=== PATIENT | female | born 1955 | race Caucasian/White ===

== ENCOUNTER 2022-05-09 22:31 | Emergency (ER) | payer OTHER, SELFPAY ==
--- NOTE | 2022-05-09 22:36 | DI.RAD.S_ITS ---
PROCEDURE: XR CHEST 1V INDICATIONS: chest pain TECHNIQUE: One view of the chest was acquired. COMPARISON: None. FINDINGS: Surgical changes and devices: None. Lungs and pleura: Lungs are hyperinflated and hyperlucent. There is scarring laterally in the right mid lung. Asymmetric dense opacity is seen in the left hilar region. Mediastinum: Mildly enlarged heart. No central venous congestion. Atherosclerotic aortic contour. Bones and chest wall: No suspicious bone lesions. Deformities multiple left lateral rib fractures. Mild dextroscoliosis. IMPRESSION: 1. Hyperinflation suggesting asthma or emphysema. 2. Left hilar opacity of uncertain etiology. Correlate with history. 3. Mild cardiomegaly without central venous congestion. Dictated by: Maddy Dey M.D. on 05/10/2022 at 0:13 Approved by: Maddy Dey M.D. on 05/10/2022 at 0:15
[2022-05-09 22:39] VITALS: BP 120/80; PULSE 88; RESP 24; TEMP 37.1; O2SAT 95; BMI 16.7
--- NOTE | 2022-05-09 23:00 | ED.SOB ---
HPI - SOB/Dyspnea General Chief Complaint: Shortness of Breath/Dyspnea Stated Complaint: SOB Time Seen by Provider: 05/09/22 22:35 Source: patient and EMS Mode of arrival: EMS Limitations: no limitations History of Present Illness HPI Narrative: Patient brought in by EMS from assisted living home. Complains of shortness of breath no chest pain. Patient continues to smoke has history of COPD is on baseline nasal cannula 4 L at home. Continuous. Patient given DuoNeb treatment by EMS. At home setting it was 85%. Now 94%. Patient is still wheezing but feeling better. Denies any chest pain. History of atrial fibrillation but is not on any blood thinners. Patient has ongoing sputum productive cough. No fever chills. No leg swelling. Patient in no distress. Patient is allergic to steroid Review of Systems Review of Systems Narrative: GENERAL: Denies chills, fatigue, malaise, fever, sweats. HEENT: Denies sinus pain, ear pain, sore throat RESPIRATORY: Positive dyspnea, cough CARDIOVASCULAR: Denies chest pain, palpitations GASTROINTESTINAL: Denies nausea, vomiting, abdominal pain : Denies dysuria, frequency, hematuria MUSCULOSKELETAL: denies muscle or bony pain SKIN: Denies rash, skin lesions NEUROLOGIC: Denies weakness, numbness ROS Unobtainable: All systems reviewed & are unremarkable except as noted in HPI and below Patient History Social History Smoking Status: Current some day smoker Smoking Status: Current some day smoker tobacco type: cigarettes Substance Use Type: does not use Exam Narrative Exam Narrative: GENERAL: in no distress, not toxic not dyspneic HEAD: Normocephalic. EYES: Pupils equal round No scleral icterus. ENT: Mucous membranes moist. NECK: Trachea midline. CARDIOVASCULAR: Regular rate and rhythm without murmurs RESPIRATORY: Speaking full sentences, however slightly dyspneic. There is bibasilar wheezing and mild rhonchi. No rales. GASTROINTESTINAL: Abdomen soft, non-tender EXTREMITIES: No gross deformities. No ankle or pedal edema BACK: No flank tenderness. NEURO: AOx4. SKIN: Warm and dry PSYCH: Not anxious, is cooperative Initial Vital Signs Initial Vital Signs: Vital Signs Temperature 98.8 F 05/09/22 22:39 Pulse Rate 88 05/09/22 22:39 Respiratory Rate 24 05/09/22 22:39 Blood Pressure 120/80 05/09/22 22:39 Pulse Oximetry 95 05/09/22 22:39 Oxygen Delivery Method 05/09/22 22:39 Oxygen Flow Rate 4 05/09/22 22:39 Course Course Course Narrative: No new issues during course of stay Orders Ordered: ED Orders 05/09/22 22:36 XR chest 1V Stat 05/09/22 22:49 RT Consult Eval and Treat RT PROTOCOL 05/09/22 22:56 EKG-12 Lead Stat 05/09/22 23:56 Complete Blood Count AUTO DIFF Stat Comprehensive Metabolic Panel Stat NT-proBNP (BNP-Adult 18+) Stat Partial Thromboplastin Time Stat Prothrombin Time INR Stat Troponin & CK Cardiac Panel Stat Discontinued Medications Albuterol/Ipratropium (Albuterol/Ipratropium 3 Ml Ampul) 3 ml INH NOW ONE Stop: 05/09/22 23:12 Last Admin: 05/09/22 23:19 Dose: 3 ml Documented By: STEVO Reevaluation(s) Reevaluation #1: Patient states feeling much better after DuoNeb treatments, 1 by EMS in 1 from us. Patient is at 97% on 4 L nasal cannula. Blood pressure 120 over 80 with pulse of 90. Patient states she feels her normal baseline at this time. Time: 23:39 Reevaluation #2: Patient remains feeling at her baseline with 4 L nasal cannula. 97%. She desires discharge home. Feels much better after breathing treatments Time: 00:54 Reevaluation #3: Patient walking in hallway very briskly on her baseline 4 L nasal cannula oxygen and is doing 95%. Having no difficulties walking or dyspneic. Patient desires discharge home. She states she is at baseline at this time. Time: 01:23 Vital Signs Vital signs: Vital Signs - 8 hr 05/09/22 23:19 05/10/22 00:05 05/10/22 00:06 Pulse Rate 88 85 Respiratory Rate 24 Blood Pressure 112/75 Pulse Oximetry 95 96 Oxygen Delivery Method Nasal Cannula Oxygen Flow Rate 3.5 05/10/22 00:06 05/10/22 00:30 05/10/22 00:30 Pulse Rate 89 85 Respiratory Rate Blood Pressure 103/74 Pulse Oximetry 95 97 Oxygen Delivery Method Oxygen Flow Rate 05/10/22 01:01 05/10/22 01:03 05/10/22 01:03 Pulse Rate 89 88 Respiratory Rate Blood Pressure 130/73 Pulse Oximetry 94 94 Oxygen Delivery Method Oxygen Flow Rate 05/10/22 01:30 05/10/22 02:00 Pulse Rate 81 75 Respiratory Rate Blood Pressure Pulse Oximetry 97 98 Oxygen Delivery Method Oxygen Flow Rate MDM - SOB/Dyspnea Differential Diagnosis Differential diagnosis: Likely acute exacerbation of chronic obstructive airways disease, congestive heart failure, community acquired pneumonia and asthma with exacerbation Lab Data Result diagrams: 05/09/22 23:56 05/09/22 23:56 Labs: Lab Results 05/09/22 05/09/22 05/09/22 Range/Units 23:56 23:56 23:56 WBC 7.2 (4.5-11.0) X10^3/uL RBC 4.14 (4.0-5.2) X10^6/uL Hgb 12.2 (12.0-16.0) g/dL Hct 36.8 (36-46) % MCV 89.0 (80-100) fL MCH 29.4 (26-34) PG MCHC 33.0 (30-36) % RDW 13.9 (11.6-14.8) % Plt Count 316 (150-400) X10^3/uL Neut % (Auto) 65.5 (50-75) % Lymph % (Auto) 21.7 L (25-40) % [place] % (Auto) 8.0 (3-14) % Eos % (Auto) 1.8 L (2-4) % Baso % (Auto) 3.0 H (0-2) % Neut # (Auto) 4700 (6154-3890) /uL Lymph # (Auto) 1500 (0381-6245) /uL [place] # (Auto) 600 (0-900) /uL Eos # (Auto) 100 (0-450) /uL Baso # (Auto) 200 H (0-100) /uL PT 15.3 H (10.1-12.7) SECONDS INR 1.3 (0.9-1.3) APTT 72 H (26-36) SECONDS Sodium 137 (137-145) mmol/L Potassium 3.7 (3.4-5.1) mmol/L Chloride 92 L (98-107) mmol/L Carbon Dioxide 40 H* (22-32) mmol/L BUN 20 H (7-17) mg/dL Creatinine 0.57 (0.52-1.04) mg/dL Estimated GFR > 60 (>60) mL/min BUN/Creatinine Ratio 35.1 H (6-22) Glucose 105 (80-110) mg/dL Calcium 8.8 (8.4-10.2) mg/dL Total Bilirubin 0.6 (0.2-1.3) mg/dL AST 18 (14-36) IU/L ALT 8 (<35) IU/L Alkaline Phosphatase 101 (38-126) U/L Total Creatine Kinase 35 (30-135) U/L CK-MB (CK-2) TNP CK-MB (CK-2) Rel Index TNP Troponin I < 0.012 (0.01-0.034) ng/mL NT-Pro-B Natriuret Pep 1760 H (<125) pg/mL Total Protein 7.0 (6.3-8.2) g/dL Albumin 3.7 (3.5-5.0) g/dL Globulin 3.3 (1.7-4.1) g/dL Albumin/Globulin Ratio 1.1 (1.0-2.8) Imaging Data Chest x-ray: Radiologist's Impression: [place] [address] XRay Report Signed Patient: Katherin Herron MR#: [id number] : 1955 Acct:[id number] Age/Sex: 67 / F Date of Service: 05/09/22 Loc: ED Accession Number: [id number] ?? Procedure: XR chest 1V Ordering Provider: Alejandro Ash MD PROCEDURE:? XR CHEST 1V ? INDICATIONS:? chest pain ? TECHNIQUE:? One view of the chest was acquired.? ? COMPARISON:? None. ? FINDINGS:? ? Surgical changes and devices:? None.? ? Lungs and pleura:? Lungs are hyperinflated and hyperlucent.? There is scarring laterally in the right mid lung.? Asymmetric dense opacity is seen in the left hilar region. ? Mediastinum:? Mildly enlarged heart.? No central venous congestion.? Atherosclerotic aortic contour. ? Bones and chest wall:? No suspicious bone lesions.? Deformities multiple left lateral rib fractures.? Mild dextroscoliosis. ? IMPRESSION:? ? 1. Hyperinflation suggesting asthma or emphysema. ? 2. Left hilar opacity of uncertain etiology.? Correlate with history. ? 3. Mild cardiomegaly without central venous congestion.? ? ? Dictated by: Maddy Dey M.D. on 05/10/2022 at 0:13 ? ? Approved by: Maddy Dey M.D. on 05/10/2022 at 0:15 ? ECG Data Interpretation: Atrial fibrillation rate [address] elevation MDM Narrative Medical decision making narrative: Appropriate for discharge home. Patient at baseline with oxygenation saturation. 4 L nasal cannula. Instructed patient to stop smoking. Patient does have breathing treatments at home. Return precautions reviewed with her. Exam and laboratory studies and imaging are reassuring. Patient thinks the weather may have been a factor trigger her COPD. It has been hot weather Discharge Plan Departure Patient Disposition: Home Clinical Impression: Acute exacerbation of chronic obstructive airways disease Activity Restrictions/Additional Instructions: Do not smoke. Please continue home medications and your home breathing treatments. See family doctor within a week for re-evaluation. Please do continue your home oxygen needs. Return if worse if any questions or concerns. Visit Report Forms: Patient Portal/API
[2022-05-09 23:19] VITALS: PULSE 88; RESP 24; O2SAT 95
[2022-05-09] MEDS: ALBUTEROL/IPRATROPIUM 3 ML AMPUL INH (23:19)
[2022-05-10] VITALS (7 sets, daily range): BP systolic 103–130; BP diastolic 73–75; PULSE 75–89; O2SAT 94–98
[2022-05-10 00:18] LABS: Add Manual Diff / Slide Review NO; Basophils Absolute Auto 200 /uL (0-100); Eosinophils Absolute Auto 100 /uL (0-450); Eosinophils Percent Auto 1.8 % (2-4); Hematocrit 36.8 % (36-46); Hemoglobin 12.2 g/dL (12.0-16.0); Lymphocytes Absolute Auto 1500 /uL (1100-4500); Lymphocytes Percent Auto 21.7 % (25-40); Mean Corpuscular Hemoglobin 29.4 PG (26-34); Monocytes Absolute Auto 600 /uL (0-900); Neutrophils Absolute Auto 4700 /uL (1500-7000); Neutrophils Percent Auto 65.5 % (50-75); Platelet Count 316 X10^3/uL (150-400); Red Blood Cell Count 4.14 X10^6/uL (4.0-5.2); Red Cell Distribution Width 13.9 % (11.6-14.8); White Blood Cell Count 7.2 X10^3/uL (4.5-11.0)
[2022-05-10 00:19] LABS: INR 1.3 (0.9-1.3); Prothrombin Time 15.3 SECONDS (10.1-12.7)
[2022-05-10 00:22] LABS: PTT Partial Thromboplastin Tim 72 SECONDS (26-36)
[2022-05-10 00:23] LABS: Alanine Aminotransferase 8 IU/L (<35); Albumin 3.7 g/dL (3.5-5.0); Albumin Globulin Ratio 1.1 (1.0-2.8); Alkaline Phosphatase 101 U/L (38-126); Aspartate Aminotransferase 18 IU/L (14-36); BUN Creatinine Ratio 35.1 (6-22); Bilirubin Total 0.6 mg/dL (0.2-1.3); Blood Urea Nitrogen 20 mg/dL (7-17); Calcium 8.8 mg/dL (8.4-10.2); Chloride 92 mmol/L (98-107); Creatine Kinase 35 U/L (30-135); Estimated Glomerular Filt Rate > 60 mL/min (>60); Globulin 3.3 g/dL (1.7-4.1); Glucose 105 mg/dL (80-110); HEMOLYSIS < 15 (0-50); Potassium 3.7 mmol/L (3.4-5.1); Sodium 137 mmol/L (137-145)
[2022-05-10 00:35] LABS: NT-proBNP (BNP-Adult 18+) 1760 pg/mL (<125); Troponin I < 0.012 ng/mL (0.01-0.034)
[2022-05-10 00:37] LABS: Carbon Dioxide 40 mmol/L (22-32)
== END 2022-05-10 02:12 | disposition home or self-care (01) ==
PROVIDERS: Emergency Provider Emergency Medicine
DX: J44.1 Chronic obstructive pulmonary disease with (acute) exacerbation (principal); R07.9 Chest pain, unspecified
CPT/HCPCS: 36415; 71045; 80053; 82550; 83880; 84484; 85025; 85610; 85730; 93005; 94640; 99284

== ENCOUNTER 2022-08-30 01:27 | Observation (INO) | payer OTHER, SELFPAY ==
[2022-08-30] VITALS (15 sets, daily range): BP systolic 89–121; BP diastolic 65–78; PULSE 69–120; RESP 20–40; TEMP 36.2–37.3; O2SAT 67–100; BMI 15.6
--- NOTE | 2022-08-30 01:24 | ED_ITS ---
HPI - Fall General Chief Complaint: Trauma Stated Complaint: Fall, hit head, on thinners Time Seen by Provider: 08/30/22 01:35 Source: EMS and old records reviewed Mode of arrival: EMS Limitations: other (difficulty speaking/shortness of breath) History of Present Illness HPI Narrative: This is a 67 year old female sent by EMS from independent living. Patient has a history of COPD and states that she has a history of CABG atrial fibrillation, patient has difficulty giving history secondary to shortness of breath. She states that she went to the bathroom she felt ill and on her way back had a fall to the ground and was found around midnight. EMS found her 85% room air, she received Solu-Medrol and DuoNeb in route and was in quite a bit of respiratory distress they states some improvement. Patient reportedly is on a blood thinner but no access to list of medications for the patient and patient is unable to tell me her home medications. She indicates that she is feeling better but still is having difficulty breathing he is denying pain currently besides telling EMS that she had shoulder and toe pain. Per EMS and patient states that they have recently been in touch with hospice she has not actually initiated hospice but a seeking placement. Patient indicates she does not want intubation or CPR but indicates she is okay with IV medications. Related Data Allergies Allergy/AdvReac Type Severity Reaction Status Date / Time No Known Drug Allergies Allergy Verified 08/30/22 02:13 Review of Systems Review of Systems ROS Unobtainable: All systems reviewed & are unremarkable except as noted in HPI and below Patient History Social History Smoking Status: Current some day smoker Exam Narrative Exam Narrative: GEN: Elderly cachectic female, alert and oriented, patient appears to be in [id number] distress. Patient able to answer some questions but has difficulty secondary to her trouble breathing. HEENT: Atraumatic, pupils are equal round reactive to light, extraocular movements are intact, nares are clear, TMs are clear with no fluid, there is no conjunctival pallor. Throat is clear without any exudates, erythema, tonsillar enlargement or uvular deviation HEART: Regular rate and rhythm without murmur, clicks, rubs. No carotid bruits, pulses are equal in upper and lower extremities LUNGS:Lungs are coarse bilaterally, bilateral wheezes, rales, crackles, chest moves symmetrically, positive for tachypnea pursed lip breathing. ABD:bowel sounds normal, soft, non-tender, no guarding, rebound, rigidity, no masses noted, no hepatosplenomegaly :No CVA tenderness BACK: No cervical, thoracic or lumbar vertebral point tenderness. MSCL: Non-tender, no muscle atrophy, muscles strength 5/5 upper and lower extremities, full range of motion, normal gait NEURO:CN 2-12 intact, sensation normal Initial Vital Signs Initial Vital Signs: Vital Signs Temperature 99.2 F 08/30/22 01:30 Pulse Rate 81 08/30/22 01:30 Respiratory Rate 40 H 08/30/22 01:30 Blood Pressure 121/75 08/30/22 01:30 Pulse Oximetry 92 08/30/22 01:30 Oxygen Delivery Method 08/30/22 01:30 Oxygen Flow Rate 4 08/30/22 01:30 Scores GCS [place] coma scale eye opening: Spontaneous [place] coma scale verbal response: Orientated [place] coma scale motor response: Obey commands [place] coma scale total score: 15 Nexus Score for C-Spine Focal Neurologic deficit present: No Course Orders Ordered: ED Orders 08/30/22 01:25 CT cervical spine wo con Stat CT head/brain wo con Stat Chest [XR chest 1V] Stat EKG-12 Lead Stat 08/30/22 01:34 XR pelvis 1-2V Stat 08/30/22 01:55 Covid-19 + FLU A/B + RSV - PCR Stat 08/30/22 02:00 Complete Blood Count AUTO DIFF Stat Comprehensive Metabolic Panel Stat Lipase Stat NT-proBNP (BNP-Adult 18+) Stat Partial Thromboplastin Time Stat Prothrombin Time INR Stat Troponin & CK Cardiac Panel Stat 08/30/22 02:04 ABG [Arterial Blood Gas] Stat 08/30/22 04:08 CT chest w con Stat Discontinued Medications Albuterol (Albuterol 2.5 Mg/3 Ml Neb (Adult)) 2.5 mg INH NOW ONE Stop: 08/30/22 02:08 Last Admin: 08/30/22 02:25 Dose: 2.5 mg Documented By: KIRSTIN Furosemide (Furosemide 40 Mg/4 Ml Vial) 40 mg IV NOW ONE Stop: 08/30/22 04:08 Last Admin: 08/30/22 06:41 Dose: Not Given Documented By: CAROLINA Piperacillin Sod/Tazobactam (Sod 4.5 gm/ Sodium Chloride) 100 mls @ 200 mls/hr IV NOW ONE Stop: 08/30/22 02:05 Last Infusion: 08/30/22 03:00 Dose: 0 mls/hr Documented By: Admin: 08/30/22 02:25 Dose: 200 mls/hr Documented By: KIRSTIN Consultations Consultation #1: Gomez, . Patient friend and has been attending all patients clinic visits and has been signed off. She states they met with hospice this week patient has been telling her that she does not want to be full code, she does not want intervention. She is currently in independent living but is falling frequently and needs more assistance than this. They are supposed to meet with her primary care physician this upcoming week to go through paperwork to make things official. Consultation #2: Dr. Demarco, patient's primary care physician he is familiar with the patient st ates she is been quite sick with severe lung disease O2 dependent, discussed that she does have a new lung mass on her imaging that was not present chest x- ray in April, discussed that there was a pulsed form from 2019 but patient is expressing that she does not want intervention and wants to be comfortable go home and , her patient's friend Gomez who he is familiar with and does no is also expressing that this is what the patient wants and Dr. Demarco states patient has also expressed him as well that this is her goals of care. Discussed that we will respect patient's current wishes. Time: 06:41 Consultation #3: Dr. Yañez, hospitalist. Accepts for inpatient placement. Discussed that friends are happy to assist but unable to do maritime officer caregiving, sons not currently in the picture patient has had hospice initial eval but does not have full-time caregiving available at home and felt appropriate for inpatient admission as she is unsafe to be discharged home independently. Vital Signs Vital signs: Vital Signs - 8 hr 08/30/22 01:58 08/30/22 01:30 08/30/22 03:04 Temperature 99.2 F Pulse Rate 82 81 Respiratory Rate 40 H 40 H Blood Pressure 118/76 121/75 Pulse Oximetry 96 92 Oxygen Delivery Method Nasal Cannula Nasal Cannula Oxygen Flow Rate 4 4 Fraction of Inspired Oxygen 50 08/30/22 01:51 08/30/22 02:00 08/30/22 02:30 Temperature Pulse Rate 72 75 69 Respiratory Rate 36 H 36 H Blood Pressure Pulse Oximetry 86 L 90 L 100 Oxygen Delivery Method Oxygen Flow Rate Fraction of Inspired Oxygen 08/30/22 03:00 08/30/22 03:30 08/30/22 04:00 Temperature Pulse Rate 69 75 72 Respiratory Rate 30 H 25 H 28 H Blood Pressure Pulse Oximetry 91 90 L 91 Oxygen Delivery Method Oxygen Flow Rate Fraction of Inspired Oxygen 08/30/22 04:11 08/30/22 04:11 08/30/22 04:30 Temperature Pulse Rate 77 Respiratory Rate 27 H Blood Pressure 89/65 L 90/65 Pulse Oximetry 91 Oxygen Delivery Method Oxygen Flow Rate Fraction of Inspired Oxygen 08/30/22 04:30 08/30/22 05:20 Temperature Pulse Rate 73 Respiratory Rate 25 H Blood Pressure 111/78 Pulse Oximetry 92 Oxygen Delivery Method Oxygen Flow Rate Fraction of Inspired Oxygen 45 - Fall Lab Data Result diagrams: 08/30/22 02:00 08/30/22 02:00 Labs: Lab Results 08/30/22 08/30/22 08/30/22 Range/Units 01:55 02:00 02:00 WBC 9.2 (4.5-11.0) X10^3/uL RBC 3.71 L (4.0-5.2) X10^6/uL Hgb 10.1 L (12.0-16.0) g/dL Hct 32.8 L (36-46) % MCV 88.3 (80-100) fL MCH 27.3 (26-34) PG MCHC 30.9 (30-36) % RDW 15.1 H (11.6-14.8) % Plt Count 527 H (150-400) X10^3/uL Neut % (Auto) 75.7 H (50-75) % Lymph % (Auto) 14.2 L (25-40) % [place] % (Auto) 9.1 (3-14) % Eos % (Auto) 0.5 L (2-4) % Baso % (Auto) 0.5 (0-2) % Neut # (Auto) 6900 (7393-0569) /uL Lymph # (Auto) 1300 (3090-1535) /uL [place] # (Auto) 800 (0-900) /uL Eos # (Auto) 0 (0-450) /uL Baso # (Auto) 0 (0-100) /uL PT 14.6 H (10.1-12.7) SECONDS INR 1.3 (0.9-1.3) APTT 58 H (26-36) SECONDS Sodium (137-145) mmol/L Potassium (3.4-5.1) mmol/L Chloride (98-107) mmol/L Carbon Dioxide (22-32) mmol/L BUN (7-17) mg/dL Creatinine (0.52-1.04) mg/dL Estimated GFR (>60) mL/min BUN/Creatinine Ratio (6-22) Glucose (80-110) mg/dL Calcium (8.4-10.2) mg/dL Total Bilirubin (0.2-1.3) mg/dL AST (14-36) IU/L ALT (<35) IU/L Alkaline Phosphatase (38-126) U/L Total Creatine Kinase (30-135) U/L CK-MB (CK-2) CK-MB (CK-2) Rel Index Troponin I (0.01-0.034) ng/mL NT-Pro-B Natriuret Pep (<125) pg/mL Total Protein (6.3-8.2) g/dL Albumin (3.5-5.0) g/dL Globulin (1.7-4.1) g/dL Albumin/Globulin Ratio (1.0-2.8) Lipase (23-300) U/L SARS-CoV-2 (PCR) Negative (Negative) Influenza A (RT-PCR) Flu a negative (NEGATIVE) Influenza B (RT-PCR) Flu b negative (NEGATIVE) RSV (PCR) Negative (Negative) 08/30/22 08/30/22 Range/Units 02:00 02:00 WBC (4.5-11.0) X10^3/uL RBC (4.0-5.2) X10^6/uL Hgb (12.0-16.0) g/dL Hct (36-46) % MCV (80-100) fL MCH (26-34) PG MCHC (30-36) % RDW (11.6-14.8) % Plt Count (150-400) X10^3/uL Neut % (Auto) (50-75) % Lymph % (Auto) (25-40) % [place] % (Auto) (3-14) % Eos % (Auto) (2-4) % Baso % (Auto) (0-2) % Neut # (Auto) (2470-2592) /uL Lymph # (Auto) (1054-8792) /uL [place] # (Auto) (0-900) /uL Eos # (Auto) (0-450) /uL Baso # (Auto) (0-100) /uL PT (10.1-12.7) SECONDS INR (0.9-1.3) APTT (26-36) SECONDS Sodium 132 L (137-145) mmol/L Potassium 4.8 (3.4-5.1) mmol/L Chloride 82 L (98-107) mmol/L Carbon Dioxide 41 H* (22-32) mmol/L BUN 19 H (7-17) mg/dL Creatinine 0.56 (0.52-1.04) mg/dL Estimated GFR > 60 (>60) mL/min BUN/Creatinine Ratio 33.9 H (6-22) Glucose 110 (80-110) mg/dL Calcium 9.1 (8.4-10.2) mg/dL Total Bilirubin 0.3 (0.2-1.3) mg/dL AST 18 (14-36) IU/L ALT 12 (<35) IU/L Alkaline Phosphatase 112 (38-126) U/L Total Creatine Kinase 24 L (30-135) U/L CK-MB (CK-2) TNP CK-MB (CK-2) Rel Index TNP Troponin I < 0.012 (0.01-0.034) ng/mL NT-Pro-B Natriuret Pep 8510 H (<125) pg/mL Total Protein 7.1 (6.3-8.2) g/dL Albumin 3.5 (3.5-5.0) g/dL Globulin 3.6 (1.7-4.1) g/dL Albumin/Globulin Ratio 1.0 (1.0-2.8) Lipase 24 (23-300) U/L SARS-CoV-2 (PCR) (Negative) Influenza A (RT-PCR) (NEGATIVE) Influenza B (RT-PCR) (NEGATIVE) RSV (PCR) (Negative) Imaging Data Chest x-ray: Radiologist's Impression: Amanda Herron??67??F??1955 ? Allergy/Adv: No Known Drug Allergies Close Chest CT 08/30/22 Pelvis X-Ray (Signed) Garcia,Henok - 08/30/[address] (Signed) Garcia,Henok - 08/30/22 Chest X-Ray (Signed) Garcia,Henok - 08/30/[address] (Signed) Garcia,Henok - 08/30/22 Chest X-Ray (Signed) Maddy Dey - 05/09/22 Launch?Image [address] [address] XRay Report Signed Patient: Katherin Herron MR#: [id number] : 1955 Acct:[id number] Age/Sex: 67 / F Date of Service: 08/30/22 Loc: ED Accession Number: [id number] ?? Procedure: XR chest 1V Ordering Provider: Vibha Gonzalez D.O. PROCEDURE:? XR CHEST 1V ? INDICATIONS:? sob, fall, head injury ? TECHNIQUE:? One view of the chest was acquired.? ? COMPARISON:? [facility], CT, CT CERVICAL SPINE WO CON, 08/30/2022, 1:34.? [facility], CR, XR CHEST 1V, 05/09/2022, 23:14. ? FINDINGS:? ? Surgical changes and devices:? None.? ? Lungs and pleura:? There is hyperinflation of the lungs with flattening of the hemidiaphragms compatible with COPD.? There is increase in size of a left hilar mass which is partially visualized on the concurrent cervical spine CT.? Increased right infrahilar opacities are also demonstrated.? There is bilateral pulmonary edema.? No pleural effusions or pneumothorax.? ? Mediastinum:? Heart size is enlarged.? ? Bones and chest wall:? No displaced fracture identified on the current study.? No suspicious bony lesions.? Overlying soft tissues appear unremarkable.? ? IMPRESSION:? ? 1. Increase in size of a left hilar mass highly suspicious for a neoplasm such as bronchogenic carcinoma.? Recommend dedicated chest CT when clinically feasible. ? 2. Bilateral pulmonary edema appears new compared to the prior study. ? 3. Increased right infrahilar opacities compatible with consolidation/pneumonia versus atelectasis.? ? Dictated by: Henok Garcia M.D. on 08/30/2022 at 2:21 ? ? Approved by: Henok Garcia M.D. on 08/30/2022 at 2:24?? CT scan - head: Radiologist's Impression: [address] [address] [address] Scan Report Signed Patient: Katherin Herron MR#: [id number] : 1955 Acct:[id number] Age/Sex: 67 / F Date of Service: 08/30/22 Loc: ED Accession Number: [id number] ?? Procedure: CT head/brain wo con Ordering Provider: Vibha Gonzalez D.O. PROCEDURE:? CT HEAD/BRAIN WO CON ? INDICATIONS:? sob, fall, head injury ? TECHNIQUE:? Noncontrast 4.5 mm thick angled axial sections acquired from the foramen magnum to the vertex, with coronal and sagittal reformats.? For radiation dose reduction, the following was used:? automated exposure control, adjustment of mA and/or kV according to patient size.? ? COMPARISON:? None. ? FINDINGS:? Image quality:? There is mild motion artifact limiting evaluation.? ? CSF spaces:? Basal cisterns are patent.? No extra-axial fluid collections.? Ventricles are normal in size and shape.? ? Brain:? No definite intracranial hemorrhage, mass, or mass effect.? Mann-white matter interface appears grossly preserved.? ? Skull and face:? Calvarium and visualized facial bones are intact, without suspicious lesions.? ? Sinuses:? Visualized sinuses and mastoids are clear.? ? IMPRESSION:? ? 1. No definite acute intracranial abnormality, with evaluation limited by motion artifact. ? ? Dictated by: Henok Garcia M.D. on 08/30/2022 at 2:13 ? ? Approved by: Henok Garcia M.D. on 08/30/2022 at 2:16?? CT - cervical spine: Radiologist's Impression: [address] [address] [address] Scan Report Signed Patient: Katherin Herron MR#: [id number] : 1955 Acct:[id number] Age/Sex: 67 / F Date of Service: 08/30/22 Loc: ED Accession Number: [id number] ?? Procedure: CT cervical spine wo con Ordering Provider: Vibha Gonzalez D.O. PROCEDURE:? CT CERVICAL SPINE WO CON ? INDICATIONS:? sob, fall, head injury ? TECHNIQUE:? Noncontrast 3 mm thick sections acquired from the skull base to the T4 level.? Sagittal and coronal reformats were then constructed.? For radiation dose reduction, the following was used:? automated exposure control, adjustment of mA and/or kV according to patient size.? ? COMPARISON:? None. ? FINDINGS:? Image quality:? There is motion artifact limiting evaluation.? ? Bones:? No fractures or subluxation.? There is accentuation of the cervical lordosis.? Minimal retrolisthesis demonstrated at C2-C3 and C3-C4.? There is multilevel degenerative disc disease and facet joint arthropathy throughout the cervical spine.? Visualized superior ribs are intact.? ? Soft tissues:? Prevertebral soft tissues are normal in thickness.? No paravertebral hematomas.? No apical pneumothoraces.? The visualized lungs demonstrate a large area of masslike consolidation within the superior segment of the left lower lobe which is incompletely included on the current study but measures at least 6.4 cm.? There is also an irregular nodule within the right upper lobe measuring up to 0.9 cm.? ? ? IMPRESSION:? ? 1. No fracture or subluxation. ? 2. Partially visualized masslike consolidation within the left lung as well as a smaller nodule in the right upper lobe.? Recommend dedicated chest CT for further eval uation when clinically feasible. ? ? Dictated by: Henok Garcia M.D. on 08/30/2022 at 2:16 ? ? Approved by: Henok Garcia M.D. on 08/30/2022 at 2:20?? pelvic xray: Radiologist's Impression: [address] [address] XRay Report Signed Patient: Katherin Herron MR#: [id number] : 1955 Acct:[id number] Age/Sex: 67 / F Date of Service: 08/30/22 Loc: ED Accession Number: [id number] ?? Procedure: XR pelvis 1-2V Ordering Provider: Vibha Gonzalez D.O. PROCEDURE:? XR PELVIS 1-2V ? INDICATIONS:? fall, hit head, thinners. ? TECHNIQUE:? Single-view of the pelvis acquired.? ? COMPARISON:? None. ? FINDINGS:? ? Bones:? No fractures or dislocations.? No suspicious bony lesions.? ? Soft tissues:? Visualized bowel gas pattern is normal.? There are scattered vascular calcifications. ? IMPRESSION:? ? 1. No definite fracture or dislocation. ? ? Dictated by: Henok Garcia M.D. on 08/30/2022 at 2:20 ? ? Approved by: Henok Garcia M.D. on 08/30/2022 at 2:21?? CT scan - chest: Radiologist's Impression: Large left lower lobe necrotic appearing mass, highly suspicious for malignancy with numerous necrotic mediastinal and hilar lymph nodes likely metastatic disease largest is 3.8 cm, small bilateral effusions left greater than right pleural. Lobe masses 4.7 x 6.3 cm with patchy consolidation within bilateral lower lobes. Cachexia. Indeterminate right adrenal nodule. Nodular parents of right thyroid gland. Hepatic lesions in right and left 1.5 and 1.1 cm. ECG Data Attestation: I personally reviewed and interpreted this ECG as follows: Prior ECG tracings: available for review Interpretation: AFib, rate 81 QRS 82 QTC 381. Patient has T-wave inversions in lateral leads, she appears to be in AFib with no P waves with QRS, patient has prior EKG from 05/09/2022 which appears similar to today's with no acute dynamic changes appreciated. MDM Narrative Medical decision making narrative: This is a 67-year-old female with known COPD and prior CABG who had a ground level fall and in respiratory distress. Patient may clear she is DNR/DNI but states that she is open to BiPAP and labs and imaging. Head CT, C-spine were obtained as patient had ground level fall, chest x-ray and pelvic x-ray, labs including ABG which shows acute hypercapnic respiratory failure with a pH of 7.29 with a CO2 of 94 PO2 of 70 on 6 L nasal cannula and a bicarb of 46 appears to have a secondary metabolic alkalosis. Patient does not have significant renal failure, troponin is negative, BNP is 8500 likely component of CHF as well, chest x-ray shows appears to be pneumonia and also possible mass and CT chest was obtained this does show a large left lower lobe necrotic mass highly suspicious for malignancy with multiple necrotic mediastinal and hilar lymph nodes she has bibasilar consolidations and small bilateral pleural effusions likely worsening her oxygenation. Patient was open to BiPAP initially but does not wish to have an on board anymore. She did become a bit more responsive, she has since removed it she is express throughout her entire stay her goal of DNR/DNI and essentially comfort measures. I spoke with her friend Gomez who has been helping her with her medical care who states they met with hospice in the last week patient was interested in starting this. I spoke with Dr. Demarco who is her primary care who states that patient's wishes recently also are consistent DNR/DNI and comfort measures would be appropriate. Patient had old POLST form that states full code but Dr. Demarco, PCP, patient herself and friend Gomez are all consistent regarding patient wishes. Patient does have a son but all contact numbers have failed for us and patient's friend is seeking to see if they have a contact number but have not heard from him in several years. Spoke with Dr. Yañez hospitalist who accepts for admission. Critical Care Time Critical Care Time Attestation: The high probability of a clinically significant, sudden or life threatening deterioration of the [cardiac, pulm] system(s) required my full and direct attention, intervention and personal management. The aggregate critical care time was [] minutes. This time is in addition to time spent performing reported procedures but includes the following: [x] Data Review and interpretation [x] Patient assessment and monitoring of vital signs [x] Documentation [x] Medication orders and management Discharge Plan Departure Patient Disposition: Admitted As Inpatient Clinical Impression: Acute hypercapnic respiratory failure, Fall, Head injury Admit Date/Time: 08/30/22 07:20
--- NOTE | 2022-08-30 01:25 | DI.CT.S_ITS ---
PROCEDURE: CT HEAD/BRAIN WO CON INDICATIONS: sob, fall, head injury TECHNIQUE: Noncontrast 4.5 mm thick angled axial sections acquired from the foramen magnum to the vertex, with coronal and sagittal reformats. For radiation dose reduction, the following was used: automated exposure control, adjustment of mA and/or kV according to patient size. COMPARISON: None. FINDINGS: Image quality: There is mild motion artifact limiting evaluation. CSF spaces: Basal cisterns are patent. No extra-axial fluid collections. Ventricles are normal in size and shape. Brain: No definite intracranial hemorrhage, mass, or mass effect. Mann-white matter interface appears grossly preserved. Skull and face: Calvarium and visualized facial bones are intact, without suspicious lesions. Sinuses: Visualized sinuses and mastoids are clear. IMPRESSION: 1. No definite acute intracranial abnormality, with evaluation limited by motion artifact. Dictated by: Henok Garcia M.D. on 08/30/2022 at 2:13 Approved by: Henok Garcia M.D. on 08/30/2022 at 2:16
--- NOTE | 2022-08-30 01:25 | DI.CT.S_ITS ---
PROCEDURE: CT CERVICAL SPINE WO CON INDICATIONS: sob, fall, head injury TECHNIQUE: Noncontrast 3 mm thick sections acquired from the skull base to the T4 level. Sagittal and coronal reformats were then constructed. For radiation dose reduction, the following was used: automated exposure control, adjustment of mA and/or kV according to patient size. COMPARISON: None. FINDINGS: Image quality: There is motion artifact limiting evaluation. Bones: No fractures or subluxation. There is accentuation of the cervical lordosis. Minimal retrolisthesis demonstrated at C2-C3 and C3-C4. There is multilevel degenerative disc disease and facet joint arthropathy throughout the cervical spine. Visualized superior ribs are intact. Soft tissues: Prevertebral soft tissues are normal in thickness. No paravertebral hematomas. No apical pneumothoraces. The visualized lungs demonstrate a large area of masslike consolidation within the superior segment of the left lower lobe which is incompletely included on the current study but measures at least 6.4 cm. There is also an irregular nodule within the right upper lobe measuring up to 0.9 cm. IMPRESSION: 1. No fracture or subluxation. 2. Partially visualized masslike consolidation within the left lung as well as a smaller nodule in the right upper lobe. Recommend dedicated chest CT for further evaluation when clinically feasible. Dictated by: Henok Garcia M.D. on 08/30/2022 at 2:16 Approved by: Henok Garcia M.D. on 08/30/2022 at 2:20
--- NOTE | 2022-08-30 01:25 | DI.RAD.S_ITS ---
PROCEDURE: XR CHEST 1V INDICATIONS: sob, fall, head injury TECHNIQUE: One view of the chest was acquired. COMPARISON: [facility], CT, CT CERVICAL SPINE WO CON, 08/30/2022, 1:34. [facility], CR, XR CHEST 1V, 05/09/2022, 23:14. FINDINGS: Surgical changes and devices: None. Lungs and pleura: There is hyperinflation of the lungs with flattening of the hemidiaphragms compatible with COPD. There is increase in size of a left hilar mass which is partially visualized on the concurrent cervical spine CT. Increased right infrahilar opacities are also demonstrated. There is bilateral pulmonary edema. No pleural effusions or pneumothorax. Mediastinum: Heart size is enlarged. Bones and chest wall: No displaced fracture identified on the current study. No suspicious bony lesions. Overlying soft tissues appear unremarkable. IMPRESSION: 1. Increase in size of a left hilar mass highly suspicious for a neoplasm such as bronchogenic carcinoma. Recommend dedicated chest CT when clinically feasible. 2. Bilateral pulmonary edema appears new compared to the prior study. 3. Increased right infrahilar opacities compatible with consolidation/pneumonia versus atelectasis. Dictated by: Henok Garcia M.D. on 08/30/2022 at 2:21 Approved by: Henok Garcia M.D. on 08/30/2022 at 2:24
--- NOTE | 2022-08-30 01:34 | DI.RAD.S_ITS ---
PROCEDURE: XR PELVIS 1-2V INDICATIONS: fall, hit head, thinners. TECHNIQUE: Single-view of the pelvis acquired. COMPARISON: None. FINDINGS: Bones: No fractures or dislocations. No suspicious bony lesions. Soft tissues: Visualized bowel gas pattern is normal. There are scattered vascular calcifications. IMPRESSION: 1. No definite fracture or dislocation. Dictated by: Henok Garcia M.D. on 08/30/2022 at 2:20 Approved by: Henok Garcia M.D. on 08/30/2022 at 2:21
[2022-08-30] MEDS: PIPERACILLIN/TAZO 4.5 GM in SODIUM CHLORIDE 0.9% 100 ML IV (02:25)
[2022-08-30] MEDS: ALBUTEROL 2.5 MG/3 ML NEB (ADULT) INH (02:25)
[2022-08-30 03:08] LABS: Add Manual Diff / Slide Review NO; Basophils Absolute Auto 0 /uL (0-100); Basophils Percent Auto 0.5 % (0-2); Eosinophils Absolute Auto 0 /uL (0-450); Eosinophils Percent Auto 0.5 % (2-4); Hematocrit 32.8 % (36-46); Hemoglobin 10.1 g/dL (12.0-16.0); Lymphocytes Absolute Auto 1300 /uL (1100-4500); Lymphocytes Percent Auto 14.2 % (25-40); Mean Corpuscular HGB Conc 30.9 % (30-36); Mean Corpuscular Hemoglobin 27.3 PG (26-34); Mean Corpuscular Volume 88.3 fL (80-100); Monocytes Absolute Auto 800 /uL (0-900); Monocytes Percent Auto 9.1 % (3-14); Neutrophils Absolute Auto 6900 /uL (1500-7000); Neutrophils Percent Auto 75.7 % (50-75); Platelet Count 527 X10^3/uL (150-400); Red Blood Cell Count 3.71 X10^6/uL (4.0-5.2); Red Cell Distribution Width 15.1 % (11.6-14.8); White Blood Cell Count 9.2 X10^3/uL (4.5-11.0)
[2022-08-30 03:13] LABS: INR 1.3 (0.9-1.3); Prothrombin Time 14.6 SECONDS (10.1-12.7)
[2022-08-30 03:16] LABS: PTT Partial Thromboplastin Tim 58 SECONDS (26-36)
[2022-08-30 03:18] LABS: Alanine Aminotransferase 12 IU/L (<35); Albumin 3.5 g/dL (3.5-5.0); Alkaline Phosphatase 112 U/L (38-126); Aspartate Aminotransferase 18 IU/L (14-36); BUN Creatinine Ratio 33.9 (6-22); Bilirubin Total 0.3 mg/dL (0.2-1.3); Blood Urea Nitrogen 19 mg/dL (7-17); Calcium 9.1 mg/dL (8.4-10.2); Chloride 82 mmol/L (98-107); Creatine Kinase 24 U/L (30-135); Estimated Glomerular Filt Rate > 60 mL/min (>60); Globulin 3.6 g/dL (1.7-4.1); Glucose 110 mg/dL (80-110); HEMOLYSIS < 15 (0-50); Lipase 24 U/L (23-300); Potassium 4.8 mmol/L (3.4-5.1); Sodium 132 mmol/L (137-145); Total Protein 7.1 g/dL (6.3-8.2)
[2022-08-30 03:27] LABS: NT-proBNP (BNP-Adult 18+) 8510 pg/mL (<125)
[2022-08-30 03:30] LABS: Troponin I < 0.012 ng/mL (0.01-0.034)
[2022-08-30 03:33] LABS: Carbon Dioxide 41 mmol/L (22-32)
[2022-08-30 04:07] LABS: COVID-19 CEPHEID 4-PLEX PCR Negative (Negative); Influenza A - CEPHEID Flu A NEGATIVE (NEGATIVE); Influenza B - CEPHEID Flu B NEGATIVE (NEGATIVE); Respiratory Syncytial Virus Negative (Negative)
--- NOTE | 2022-08-30 04:08 | DI.CT.S_ITS ---
PROCEDURE: CT CHEST W CON INDICATIONS: lung mass, acute on chronic lung disease TECHNIQUE: After the administration of intravenous contrast, 5 mm thick sections acquired from the pulmonary apices to the posterior costophrenic angles. 1 mm axial lung, 5 mm thick coronal and sagittal reformats and 7 mm axial MIP were acquired. For radiation dose reduction, the following was used: automated exposure control, adjustment of mA and/or kV according to patient size. COMPARISON: [facility], [place], PET NECK TO MID THIGH, 09/04/2018, 13:53. [facility], [place], XR CHEST 1V, 05/09/2022, 23:14. [facility], [place], XR CHEST 1V, 08/30/2022, 1:41. FINDINGS: Image quality: Excellent. Lungs and pleura: There is a large mass in the left lower lobe measuring 5.9 x 5.3 by 6.0 cm, highly suspicious for primary lung cancer. There is narrowing of the left upper lobe and lower lobe bronchi. The mass is seen in contact with left central pulmonary vasculature. Peripheral nodular infiltrates are present bilaterally. There are bibasilar consolidation and atelectasis. Trace pleural effusions are present bilaterally. No pneumothorax. Central and peripheral airways are patent and normal in caliber. Mediastinum: There is mediastinal and bilateral hilar lymphadenopathy. Large AP window merrick mass measures 5.9 x 6.4 cm. There is a 3.6 cm diameter right paratracheal lymph node. Enlarged subcarinal lymph node measures 1.4 x 1.6 cm. Large left hilar lymph node appears to be continuous with the left perihilar mass. Mildly enlarged right hilar lymph node measures 1.3 cm. Heart size is moderately increased. No pericardial effusion. Moderate coronary artery calcification consistent with atherosclerosis. Thoracic aorta and central pulmonary arteries are normal in size. Esophagus is normal in caliber. No hiatal hernia. Bones and chest wall: There is a 2.5 x 3.2 cm right supraclavicular lymph node consistent with metastasis. A 1.0 x 1.4 cm soft tissue nodule is present just behind the left clavicle suspicious for a mildly enlarged supraclavicular lymph node. There is severe kyphosis and moderate scoliosis. No suspicious bony lesions. No vertebral body compression fractures. No axillary or supraclavicular adenopathy by size criteria. The left thyroid gland is nodular and heterogeneous. Abdomen: There are several small indeterminate hepatic hypodensities. There are bilateral adrenal nodules. The right adrenal nodule measures 1.4 x 1.9 cm. The left adrenal nodule measures 1.5 x 1.4 cm. Small cortical nodules in left kidney are most likely cysts. IMPRESSION: 1. Large left lower lobe mass, highly suspicious for primary lung cancer. 2. 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 3. Bilateral peripheral nodular infiltrates and bibasilar consolidation or atelectasis. 4. Moderate cardiomegaly. 5. Indeterminate hypodense nodules in liver. 6. Indeterminate adrenal nodules bilaterally. Recommend adrenal protocol MRI or CT for follow-up evaluation. Alternatively, PET-CT can be obtained. 7. Heterogeneous left thyroid lobe. Recommend thyroid ultrasound for follow-up. No significant discrepancy with the night nurse radiology preliminary report. Dictated by: Gregoria Sorto M.D. on 08/30/2022 at 7:53 Approved by: Gregoria Sorto M.D. on 08/30/2022 at 8:25
--- NOTE | 2022-08-30 06:28 | PC.NURSE ---
Pt has verbalized that she does not want CPR, she has also verbalized she does not want to use Bi-pap, she has removed her cardiac lead, BP cuff, pulse ox and NC. Lizet has attempted to contact PCP, Dr Gonzalez has attempted to contact next of kin. Pt has friend, Gomez that assists in coordination of medical care that states the patient has started to set up hospice services.
--- NOTE | 2022-08-30 09:28 | PC.NURSE ---
Pt restless but was able to return to bed with assist. 02 5L NC on and pt is tolerating. RR 40 w/ pursed lip breathing.
[2022-08-30] MEDS: LORazepam 2 MG/ML INJ 1 MG IV ×3 (09:31→14:12)
[2022-08-30] MEDS: MORPHINE 2 MG/ML INJ IV ×2 (10:27→13:57)
--- NOTE | 2022-08-30 14:30 | P.HP_ITS ---
History of Present Illness History of Present Illness Chief complaint: Fall, hit head, on thinners Narrative: 67-year-old female with known COPD, coronary artery disease status post CABG, atrial fibrillation on chronic anticoagulation, who presented to the emergency department early this morning. She apparently woke up to go to the bathroom early this morning. She felt ill and sustained a ground level fall around midnight. She was also noted to be short of breath. EMS was called and she was noted to be hypoxic with room air saturations of 85%. She received DuoNeb and Solu-Medrol. She was reported to be a poor historian at the time of evaluation. A friend who has been assisting the patient reported she had an informational visit with hospice last week but had not yet admitted to hospice services. In the emergency department she underwent workup including a cervical spine CT which showed no acute fractures or subluxation. There is a partially visualized masslike consolidation within the left lung as well as a smaller nodule in the right upper lobe. Chest x-ray showed increased size of a left hilar mass highly suspicious for neoplasm such as bronchogenic carcinoma. There is bilateral pu lmonary edema which is new compared to prior study. Increased right infrahilar opacities compatible with consolidation/pneumonia versus atelectasis. Head CT revealed no acute intracranial abnormality. Pelvic x-ray revealed no acute fracture or dislocation. Chest CT revealed large left lower lobe mass highly suspicious for primary lung cancer. There is extensive mediastinal and bilateral hilar adenopathy, as well as bilateral supraclavicular lymphadenopathy compatible with merrick metastases. Bilateral peripheral nodular infiltrates and bibasilar consolidation or atelectasis. Moderate cardiomegaly. Indeterminate hypodense nodule in the liver. Indeterminate adrenal nodules bilaterally. Heterogeneous left thyroid lobe. Due to her respiratory distress, patient was placed on BiPAP for a couple of hours. She tolerated it well but then elected to discontinue. She also received IV Zosyn and an albuterol nebulizer. Respiratory viral panel was done and was negative. Patient has a POLST that specified full code status. However, patient expressed that she did not wish for resuscitation. This was also confirmed with her PCP Dr. Demarco. Patient expressed the desire to discharge home. However, she lives in an independent living environment and had no one available to care for her. Admission was recommended. At the time of my evaluation, patient is seen in the emergency department. She is unresponsive. She does briefly open her eyes but does not communicate. Patient History Comment: Unable to obtain due to unresponsiveness Family & Social History Family history unavailable: Yes (Unable to obtain) Social History: Unable to obtain due to unresponsiveness Safety & Behavioral: Feels Safe in Current Yes Environment Been Physically Hurt or No Threatened By a Person Tobacco & Substance use: Smoking Status Current some day smoker Substance Use Type does not use Meds Home Medications and Allergies Allergies Allergy/AdvReac Type Severity Reaction Status Date / Time No Known Drug Allergies Allergy Verified 08/30/22 02:13 Review of Systems Review of Systems Narrative: Unable to obtain due to unresponsiveness Exam Vital Signs (past 8 hours): - 08/30/22 10:38 08/30/22 13:40 Temperature 97.1 F L Pulse Rate 80 83 Respiratory Rate 40 H 36 H Blood Pressure 117/70 Pulse Oximetry 93 67 L Oxygen Delivery Method Nasal Cannula Oxygen Flow Rate 5 6 Fraction of Inspired Oxygen 45 Oxygen Delivery Method Nasal Cannula Oxygen Flow Rate 6 Const Other: GEN: Acutely and chronically ill-appearing middle-aged female, appears much older than physiologic age, moderately dyspneic HEENT: Normocephalic, face symmetric, pupils equal round reactive to light, extraocular movements can not be assessed, sclerae anicteric, conjunctiva clear, nares patent, oropharynx reveals an intact soft and hard palate with dry mucous membranes NECK: Supple, no lymphadenopathy, thyroid without enlargement or nodularity, carotids no bruits CHEST: Respiratory excursions symmetric, tachypneic, moderate dyspnea, inspiratory squeak/wheeze in the left lung CV: Mildly tachycardic with regular rhythm , no murmurs, rubs, gallops, PMI nondisplaced ABD: Soft, nontender, nondistended, bowel sounds hypoactive in all 4 quadrants, no organomegaly or masses appreciated EXTR: Warm, well perfused, no clubbing/cyanosis/edema SKIN: Warm and dry, without rash NEURO: Unresponsive PSYCH: Unable to assess due to unresponsiveness Objective Labs Result Diagrams: 08/30/22 02:00 08/30/22 02:00 Labs: Laboratory Results - last 24 hr 08/30/22 08/30/22 08/30/22 01:55 02:00 02:00 WBC 9.2 RBC 3.71 L Hgb 10.1 L Hct 32.8 L MCV 88.3 MCH 27.3 MCHC 30.9 RDW 15.1 H Plt Count 527 H Neut % (Auto) 75.7 H Lymph % (Auto) 14.2 L [place] % (Auto) 9.1 Eos % (Auto) 0.5 L Baso % (Auto) 0.5 Neut # (Auto) 6900 Lymph # (Auto) 1300 [place] # (Auto) 800 Eos # (Auto) 0 Baso # (Auto) 0 PT 14.6 H INR 1.3 APTT 58 H Sodium Potassium Chloride Carbon Dioxide BUN Creatinine Estimated GFR BUN/Creatinine Ratio Glucose Calcium Total Bilirubin AST ALT Alkaline Phosphatase Total Creatine Kinase CK-MB (CK-2) CK-MB (CK-2) Rel Index Troponin I NT-Pro-B Natriuret Pep Total Protein Albumin Globulin Albumin/Globulin Ratio Lipase SARS-CoV-2 (PCR) Negative Influenza A (RT-PCR) Flu a negative Influenza B (RT-PCR) Flu b negative RSV (PCR) Negative 08/30/22 08/30/22 02:00 02:00 WBC RBC Hgb Hct MCV MCH MCHC RDW Plt Count Neut % (Auto) Lymph % (Auto) [place] % (Auto) Eos % (Auto) Baso % (Auto) Neut # (Auto) Lymph # (Auto) [place] # (Auto) Eos # (Auto) Baso # (Auto) PT INR APTT Sodium 132 L Potassium 4.8 Chloride 82 L Carbon Dioxide 41 H* BUN 19 H Creatinine 0.56 Estimated GFR > 60 BUN/Creatinine Ratio 33.9 H Glucose 110 Calcium 9.1 Total Bilirubin 0.3 AST 18 ALT 12 Alkaline Phosphatase 112 Total Creatine Kinase 24 L CK-MB (CK-2) TNP CK-MB (CK-2) Rel Index TNP Troponin I < 0.012 NT-Pro-B Natriuret Pep 8510 H Total Protein 7.1 Albumin 3.5 Globulin 3.6 Albumin/Globulin Ratio 1.0 Lipase 24 SARS-CoV-2 (PCR) Influenza A (RT-PCR) Influenza B (RT-PCR) RSV (PCR) Assessment & Plan Assessment & Plan narrative: 1. Acute hypoxic respiratory failure 2. 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 COPD 4. Coronary artery disease 5. Atrial fibrillation, paroxysmal 6. Ground level fall 7. Chronic anticoagulation 8. Thrombocytosis 9. Normocytic anemia Patient presented to the emergency department after a ground level fall with head injury on anticoagulation. Workup was negative. However, she would severe shortness of breath. Additional imaging and workup revealed new diagnosis of a large lung mass measuring 5.9 x 5.3 x 6.0 cm which is highly suspicious for primary lung cancer. There is additional evidence of merrick metastasis with mediastinal and bilateral hilar adenopathy. There is a large AP window merrick mass measuring 5.9 x 6.4 cm. A 3.6 cm right paratracheal lymph node. Enlarged subcarinal lymph node measuring 1.4 x 1.6 cm. And a mildly enlarged right hilar lymph node measuring 1.3 cm. Additionally, 2.5 x 3.2 cm right supraclavicular lymph node consistent with metastasis and a 1.0 x 1.4 cm soft tissue nodule just behind the left clavicle suspicious for mildly enlarged supraclavicular lymph node. Given her presentation, desire to be DNR/comfort care, and the lack of caregivers in her home, the decision was made to admit to the hospital for comfort care. She has suffered a rapid decline in his presently unresponsive. Will continue IV morphine and lorazepam as needed for pain/dyspnea/anxiety or restlessness. She had no evidence of head injury despite her ground level fall on anticoagulation. Unfortunately, patient has very advanced disease and although her desire was to return home, this could not be accomplished with limited caregiving. Anticipated prognosis is less than 24 hours. Time Spent With Patient Critical Care time: I spent a total of [] minutes of critical care time on this patient's care today; this time is exclusive of procedural time.
[2022-08-30 16:37] LABS: Fractionated Inspired Oxygen 44; HCO3 ABG 46 mmol/L (22-26); Oxygen Saturation ABG 90 % (95-100); PCO2 ABG 94.3 mmHg (35-45); PO2 ABG 70 mmHg (80-100); TCO2 ABG 49 mmol/L (21-31)
--- NOTE | 2022-08-30 20:03 | PC.NURSE ---
pt arrived from ED at 1350. She is obtunded, and non verbal, in respiratory distress to agonal breathing. She is given prn morphine and ativan, q 2 turning, ryan in place. She is observed to be sleeping this shift. Currently on 5 LNC with humidifier.
--- NOTE | 2022-08-30 20:11 | PC.NURSE ---
Addendum entered by Roseann Null R.N. 08/30/22 22:42: After multiple attempts to contact family, pt. sent with [facility]. Addendum entered by Roseann Null R.N. 08/30/22 21:37: Trying Aunt June again [phone], only voice mail. Phone number left. Addendum entered by Roseann Null R.N. 08/30/22 21:11: Calling multiple phone numbers for aunt, mother and son. Let messages on aunt and son's answering service. No return phone calls. Mother's phone number not working with any area code. Addendum entered by Roseann Null R.N. 08/30/22 20:43: Calling Gomez friend of patient for information about family. According to records son is not a participant, only other family listed is mother. Gomez providing Aunt and Uncle phone number. number called and phone number left. Original Note: Patient noticed to be nonresponsive with no pulse or blood pressure. Verified with 2 nurses at 1999. [facility]FA Pedroza notified of same.
--- NOTE | 2022-08-31 23:49 | PM.DDS.1 ---
Discharge Summary History of Illness Narrative: Late entry: note Chief Complaint: Acute hypoxic respiratory failure From history and physical by Dr. Annie Gonzalez Chief complaint: Fall, hit head, on thinners Narrative: 67-year-old female with known COPD, coronary artery disease status post CABG, atrial fibrillation on chronic anticoagulation, who presented to the emergency department early this morning.? She apparently woke up to go to the bathroom early this morning.? She felt ill and sustained a ground level fall around midnight.? She was also noted to be short of breath.? EMS was called and she was noted to be hypoxic with room air saturations of 85%.? She received DuoNeb and Solu-Medrol.? She was reported to be a poor historian at the time of evaluation.? A friend who has been assisting the patient reported she had an informational visit with hospice last week but had not yet admitted to hospice services.? In the emergency department she underwent workup including a cervical spine CT which showed no acute fractures or subluxation.? There is a partially visualized masslike consolidation within the left lung as well as a smaller nodule in the right upper lobe.? Chest x-ray showed increased size of a left hilar mass highly suspicious for neoplasm such as bronchogenic carcinoma.? There is bilateral pulmonary edema which is new compared to prior study.? Increased right infrahilar opacities compatible with consolidation/pneumonia versus atelectasis.? Head CT revealed no acute intracranial abnormality.? Pelvic x-ray revealed no acute fracture or dislocation.? Chest CT revealed large left lower lobe mass highly suspicious for primary lung cancer.? There is extensive mediastinal and bilateral hilar adenopathy, as well as bilateral supraclavicular lymphadenopathy compatible with merrick metastases.? Bilateral peripheral nodular infiltrates and bibasilar consolidation or atelectasis.? Moderate cardiomegaly.? Indeterminate hypodense nodule in the liver.? Indeterminate adrenal nodules bilaterally.? Heterogeneous left thyroid lobe.? Due to her respiratory distress, patient was placed on BiPAP for a couple of hours.? She tolerated it well but then elected to discontinue.? She also received IV Zosyn and an albuterol nebulizer.? Respiratory viral panel was done and was negative.? Patient has a POLST that specified full code status.? However, patient expressed that she did not wish for resuscitation.? This was also confirmed with her PCP Dr. Demarco.? Patient expressed the desire to discharge home.? However, she lives in an independent living environment and had no one available to care for her. Admission was recommended.? At the time of my evaluation, patient is seen in the emergency department.? She is unresponsive.? She does briefly open her eyes but does not communicate. Hospital Course Date of Admission: 08/30/22 07:20 Primary care provider: Doctor Orion MD Consults: 08/30/22 09:18 Consult to Discharge Planning Routine Comment: Consult to Hospice Referral Urgent Comment: Discharge provider: RAFA Lipscomb Discharge Diagnosis: Acute hypercapnic respiratory failure admission for comfort measures only. Hospital Course: Patient presented to the emergency department after a ground level fall with head injury on anticoagulation.? Workup was negative.? However, she would severe shortness of breath.? Additional imaging and workup revealed new diagnosis of a large lung mass measuring 5.9 x 5.3 x 6.0 cm which is highly suspicious for primary lung cancer.? There is additional evidence of merrick metastasis with mediastinal and bilateral hilar adenopathy.? There is a large AP window merrick mass measuring 5.9 x 6.4 cm.? A 3.6 cm right paratracheal lymph node.? Enlarged subcarinal lymph node measuring 1.4 x 1.6 cm.? And a mildly enlarged right hilar lymph node measuring 1.3 cm.? Additionally, 2.5 x 3.2 cm right supraclavicular lymph node consistent with metastasis and a 1.0 x 1.4 cm soft tissue nodule just behind the left clavicle suspicious for mildly enlarged supraclavicular lymph node.? Given her presentation, desire to be DNR/comfort care, and the lack of caregivers in her home, the decision was made to admit to the hospital for comfort care.? She has suffered a rapid decline in his presently unresponsive.? Will continue IV morphine and lorazepam as needed for pain/dyspnea/anxiety or restlessness.? She had no evidence of head injury despite her ground level fall on anticoagulation.? Unfortunately, patient has very advanced disease and although her desire was to return home, this could not be accomplished with limited caregiving. Patient was noted to have by nursing at 1999 on 08/30/2022 Objective Labs Result Diagrams: 08/30/22 02:00 08/30/22 02:00
== END 2022-08-30 22:35 | disposition expired | DRG 189 ==
LOC: ED 07:19 → AC 09:28 → ICU 13:24 → AC 03-25 14:12 → ICU 03-25 14:12
PROVIDERS: Emergency Medicine; Admitting Provider Family Medicine; Emergency Provider Emergency Medicine; Referring Provider Emergency Medicine; Visit Provider Family Medicine
DX: J96.01 Acute respiratory failure with hypoxia (principal); C34.92 Malignant neoplasm of unspecified part of left bronchus or lung; C77.1 Secondary and unspecified malignant neoplasm of intrathoracic lymph nodes; F17.200 Nicotine dependence, unspecified, uncomplicated; I48.0 Paroxysmal atrial fibrillation; S09.90XA Unspecified injury of head, initial encounter; W18.30XA Fall on same level, unspecified, initial encounter; Z66 Do not resuscitate; Z79.01 Long term (current) use of anticoagulants; Z51.5 Encounter for palliative care; Z20.822 Contact with and (suspected) exposure to COVID-19
CPT/HCPCS: 0241U; 36600; 70450; 71045; 71260; 72125; 72170; 80053; 82550; 82805; 83690; 83880; 84484; 85025; 85610; 85730; 87797; 93005; 93010; 94640; 96365; 96375; 99285; 99291; G0378; J2060; J2270; J2543; J7613; Q9967